=== PATIENT | male | born 2000 | race Caucasian/White ===

== ENCOUNTER 2021-03-05 20:26 | Emergency (ER) | payer MEDICAID ==
[~2021-03-05] VITALS: Ht 165 cm; Wt 57.2 kg
[~2021-03-05 20:26] MED LIST: AC500T PO; ALBU17AE23 IH; AZTH250C PO; DOXY-233 PO; LIDO20SO20 PO; ONDA4TAB8 PO; OSLT75CRX PO; PRD20T PO; SULF1TAB7 PO
--- NOTE | 2021-03-05 21:11 | ED Cough/URI ---
General Chief Complaint: Cough/Cold/Flu Symptoms Stated Complaint: SOB,COUGH,UPSET STOMACH Nursing Triage Note: PT PRESENTS TO THE ED C/O LOOSE STOOLS, COUGH, FEELING FEVERISH AND HAVING ABD. PAIN FOR THE LAST 2-3 DAYS. ALSO REPORTS PRODUCTIVE COUGH Source: patient (VERY LIMITED HISTORIAN) History of Present Illness Date Seen by Provider: Mar 05, 2021 Time Seen by Provider: 20:45 Initial Comments PT ARRIVES VIA POV FROM HOME WITH MOM, WHO IS ALSO BEING SEEN TONIGHT FOR SAME SYMPTOMS PT STATES HE BEGAN FEELING SICK ON Sunday03/03/21 C/O MILD COUGH C/O NAUSEA, NO VOMITING C/O DIARRHEA X 3 TODAY SUBJECTIVE FEVER C/O SORE THROAT DOES NOT THINK HE HAS LOST TASTE OR SMELL NO HEADACHE NO BODY ACHES NO SHORTNESS OF BREATH PT IS ABLE TO EAT AND DRINK HAS NOT RECEIVED COVID-19 VACCINE NO CHRONIC ILLNESSES HAS NOT TAKEN ANYTHING FOR SYMPTOMS SYMPTOMS NO DIFFERENT CURLY HAS NOT SOUGHT CARE UNTIL CURLY LIVES AT HOME WITH MOM AND BROTHER--BROTHER IS NOT SICK AT THIS TIME PCP: DR. BLACKMAN Allergies and Home Medications Allergies Coded Allergies: No Known Drug Allergies (Unverified , 08/21/10) Home Medications Ondansetron 4 Mg Tab.rapdis, 4 MG PO Q4H Prescribed by: DINAH LUNDY on 03/26/15 0114 Ondansetron 4 Mg Tab.rapdis, 4 MG PO Q4H Prescribed by: DINAH LUNDY on 11/03/15 0614 Ondansetron 4 Mg Tab.rapdis, 4 MG PO Q4H Prescribed by: DINAH LUNDY on 03/05/21 7644 Patient Home Medication List Home Medication List Reviewed: Yes Review of Systems Review of Systems Constitutional: see HPI, fever EENTM: throat pain Respiratory: see HPI, cough; No short of breath Cardiovascular: no symptoms reported Gastrointestinal: see HPI, diarrhea, nausea; No vomiting Genitourinary: no symptoms reported Musculoskeletal: no symptoms reported Skin: no symptoms reported Psychiatric/Neurological: No Symptoms Reported Hematologic/Lymphatic: No Symptoms Reported Immunological/Allergic: no symptoms reported Past Lovpnyo-Dupegk-Wfdfis Hx Patient Social History Tobacco Use?: No Smokeless Tobacco Frequency: Never a User Use of E-Cig and/or Vaping Andrew: Never a User Substance use?: No Alcohol Use?: Yes Alcohol Frequency: Once in a while Immunizations Up To Date Tetanus Booster (TDap): More than 5yrs PED Vaccines UTD: Yes Seasonal Allergies Seasonal Allergies: No Past Medical History Surgeries: No Respiratory: No Cardiac: No Neurological: No Genitourinary: No Gastrointestinal: No Musculoskeletal: No Endocrine: No HEENT: No Cancer: No Psychosocial: No Integumentary: No Blood Disorders: No Physical Exam Vital Signs - First Documented 03/05/21 20:47 Temp 37.4 Pulse 93 Resp 18 B/P (MAP) 135/93 (107) Pulse Ox 100 O2 Delivery Room Air Capillary Refill : Less Than 3 Seconds Height: 5'3" Weight: 105lbs. oz. 47.553316qt; 21.00 BMI Method:Stated General Appearance: WD/WN, no apparent distress, other (DOES NOT APPEAR ILL OR TO BE IN ANY DISCOMFORT OR DISTRESS. 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, no motor/sensory deficits, alert, oriented x 3, other (VERY FLAT AFFECT) Skin: normal color, warm/dry Progress/Results/Core Measures Suspected Sepsis SIRS Temperature: Pulse: 93 Respiratory Rate: 18 Blood Pressure 135 /93 Mean: 107 Results/Orders Lab Results Laboratory Tests Test 03/05/21 20:50 Range/Units SARS-CoV-2 RNA (RT-PCR) Detected H Not Detecte My Orders Orders - DINAH LUNDY DO Covid 19 Inhouse Test (03/05/21 20:34) Rx-Ondansetron Po (Rx-Zofran Po) (03/05/21 22:56) Vital Signs/I&O 03/05/21 03/05/21 20:47 20:50 Temp 37.4 Pulse 93 Resp 18 B/P (MAP) 135/93 (107) Pulse Ox 100 O2 Delivery Room Air Room Air Capillary Refill : Less Than 3 Seconds Blood Pressure Mean: 107 Progress Note : Progress Note PLACED IN ISOLATION ROOM PPE WORN AT ALL TIMES COVID-19 TESTING PERFORMED ADVISED OF NEED FOR QUARANTINE LENGTHY WAIT FOR TEST RESULTS--LAB VERY BUSY UPDATED PT MULTIPLE TIMES PT NOT A CANDIDATE FOR REGEN-COV BASED ON YOUNG AGE, BMI<25, NO CHRONIC ILLNESSES NO COUGH NO DYSPNEA NO HYPOXIA NO FEVER NO VOMITING OR DIARRHEA VITALS NORMAL Departure Impression Primary Impression: COVID-19 virus infection Disposition: HOME, SELF-CARE Condition: Stable Departure-Patient Inst. Decision time for Depature: 23:01 Referrals: TORRI BLACKMAN DO (PCP/Family) Primary Care Physician Patient Instructions: COVID-19 (DC), Recovery After COVID-19 Add. Discharge Instructions: LOTS OF CLEAR LIQUIDS--WATER, BROTH, JELLO, GATORADE BRATS DIET--BANANAS, RICE, APPLESAUCE, TOAST, SALTINES TYLENOL 1 GRAM/ MOTRIN 800 MG 4 TIMES A DAY FOR PAIN OR FEVER OVER THE COUNTER MUCINEX DM FOR COUGH AND CONGESTION FOLLOW UP WITH YOUR DR IN 5-7 DAYS IF NO BETTER, RETURN TO ER IF WORSE QUARANTINE YOURSELF AND ALL HOUSEHOLD MEMBERS FOR 2 WEEKS--NO ONE ENTERS OR LEAVES YOUR HOUSE FOR 2 WEEKS All discharge instructions reviewed with patient and/or family. Voiced understanding. Scripts Ondansetron (Ondansetron Odt) 4 Mg Tab.rapdis 4 MG PO Q4H for Nausea/Vomiting, #10 TAB Prov: DINAH LUNDY DO 03/05/21 DINAH LUNDY DO Mar 05, 2021 21:11
[2021-03-05] MEDS ORDERED: ONDA4TAB11 PO (22:56)
[2021-03-05] MEDS ORDERED: RX-ONDANSETRON 4 MG ODT (ZOFRAN) PPK #4 PO STA (22:56)
[2021-03-05 23:19] VITALS: BP 115/89
== END 2021-03-05 23:35 | disposition home or self-care (01) ==
LOC: EDUNIT# 20:26 → ER 20:28
DX: U07.1 COVID-19 (principal)
CPT/HCPCS: 87636; 99283